=== PATIENT | female | born 1970 | race Caucasian/White ===

== ENCOUNTER 2025-03-30 09:17 | Emergency (ER) | payer BC, SELFPAY ==
--- NOTE | 2025-03-30 09:22 | ED_ITS ---
HPI - Ear Problem General Chief complaint: Ear Stated complaint: rt ear pain Time Seen by Provider: 03/30/25 09:40 Source: patient and RN notes reviewed Mode of arrival: ambulatory Limitations: no limitations History of Present Illness HPI Narrative: 54-year-old female presents with concern for a pounding noise in her right ear and pain behind her ear on her scalp. She denies any injury or trauma. She denies drainage from the ear. She denies runny nose, stuffy nose. She reports she feels like her ear is draining. She denies any redness, warmth, open skin, rash. She denies any exacerbating factors. Reports some positions such as lying down might relieve the symptoms. MD Complaint: ear pain Related Data Home Medications ?Medication ?Instructions ?Recorded ?Confirmed ?Last Taken ?Type insulin human U-100 NPH-regulr 1 sliding scale dose subcut 03/30/25 03/30/25 Unknown History 70-30 mix 100 unit/mL subcutaneous USEASDIRECTD susp (Novolin 70/30 U-100 Insulin) Allergies Allergy/AdvReac Type Severity Reaction Status Date / Time Penicillins Allergy Mild Hives Verified 03/30/25 09:23 Review of Systems Review of Systems: CONSTITUTIONAL: Denies malaise, chills, sweats, or fever. EYES: Denies visual changes, redness, or discharge. ENT: Denies rhinorrhea, congestion, sinus pain, and sore throat. Reports pounding in the right ear, denies pain CARDIOVASCULAR: Denies chest pain, palpitations, or edema. RESPIRATORY: Denies cough. Denies dyspnea. GASTROINTESTINAL: Denies abdominal pain, nausea, vomiting, diarrhea SKIN: Denies rash or itching. MUSCULOSKELETAL: Denies myalgia. Reports scalp pain behind the right ear NEUROLOGIC: Denies headache. All systems reviewed & are unremarkable except as noted in HPI and below [facility] Family History Family History (Updated 09/20/16 @ 17:17 by DOCTOR UNKNOWN) Sibling Patient's sister is in good health Family history of diabetes mellitus in first degree relative Grandparent Family history of alcoholism Family history of lung cancer Diabetes mellitus Mother Patient's mother is , Onset Age: 55 Father Patient's father is Other Family history of cardiovascular disease Social History Social History Smoking status: Never smoker Alcohol intake: never Comments At time of signature, agree with nursing past medical, surgical, social and family history. There is no relevant family history pertinent to the presenting complaint Exam Narrative: GENERAL: Well-appearing, well-nourished, and in no acute distress. HEAD: Normocephalic EYES: PERRLA, conjunctivae clear ENT: Nares clear. Mucous membranes moist. TM pearly yang with sharp light reflex bilaterally; no tragal tenderness, EAC unremarkable. No post or pre-auricular erythema, induration, or warmth noted. Oropharynx not erythematous without lesions. Tonsils not enlarged and without exudate, no drooling, no hoarseness, no trismus, uvula midline. NECK: Supple. No lymphadenopathy CHEST: Clear to auscultation, breath sounds equal. No wheezing, rhonchi, rales, or stridor. No respiratory distress, speaks in full sentences. HEART: Regular rate and rhythm. No murmur heard. SKIN: Warm, dry, no rash. No erythema, induration, masses, fluctuant areas behind the right ear. Mild tenderness to palpation. NEURO: Alert and oriented x3. PSYCH: Normal mood and affect Course Course Emergency Course: Patient is aware of diagnosis, understands and agrees to treatment plan. Anticipatory guidance given. Patient agrees to follow-up as directed and is aware of reasons to seek care at the emergency department. Portions of this record may have been created with voice recognition software Level of Care: [facility] Visit Vital Signs Vital signs: Reviewed. Medical Decision Making MDM Narrative Medical decision making narrative: I evaluated this in the [facility]. History is obtained from patient who is an independent historian and physical exam was performed.? Available medical records were reviewed. ? Exam findings and relevant testing show no acute concerns or changes; patient is non-toxic appearing and is in no distress. Differential diagnosis considered: Moore virus, strep pharyngitis, allergic rhinitis, upper respiratory tract infection, sinusitis, rhinosinusitis, nasopharyngitis. viral pharyngitis, otitis media, otitis externa, otitis effusion, pre/post auricular cellulitis, mastoiditis, cerumen impaction, foreign body. Exam findings show no acute concerns or changes; patient is non-toxic appearing and is in no distress. Patient is appropriate for outpatient treatment and follow-up. ? Differential diagnosis and treatment plan were discussed with the patient. Patient agrees with discussion and after shared medical decision making agrees with plan of care. All questions were answered to the patient's satisfaction. Patient is appropriate for outpatient treatment and follow-up. Critical Care Time Critical Care Time Critical Care Time: No Discharge Plan Discharge Clinical Impression: Earache on right, Scalp pain Patient Disposition: Home Condition: Stable Instructions: Earache (ED) Additional Instructions: 1) Please follow-up with your primary care doctor for further evaluation. 2) If you have any worsening of symptoms or any other urgent concerns please go to the ER. 3) Please take medications as prescribed and continue taking your home medications as usual. 4) Please read and follow information included in discharge instructions. Patient Language: Hebrew Prescriptions: New ibuprofen 800 mg tablet 800 mg PO Q6H PRN (Reason: pain) Qty: 30 0RF oxymetazoline [Afrin (oxymetazoline)] 0.05 % spray,non-aerosol 2 spray intranasal Q12H PRN (Reason: nasal congestion) 3 Days Qty: 15 0RF tizanidine 2 mg capsule 2 mg PO TID PRN (Reason: muscle spasticity) Qty: 14 0RF No Action Novolin 70/30 U-100 Insulin 100 unit/mL (70-30) suspension 1 sliding scale dose subcut USEASDIRECTD Follow-up/Referrals: Jennifer Lugo DO [Physician] - PHYSICIAN,MASTER MACHINIST [Primary Care Provider] - Time of Disposition: 09:46
[2025-03-30 09:24] VITALS: BP 148/74; PULSE 80; RESP 16; TEMP 36.2; O2SAT 100
--- OUTSIDE RECORDS SUMMARY | 2025-03-30 09:37 | XMS_ITS | Clinical Summary ---
Author Organization [facility] Address [facility] [place] [address] Care Team Providers Care Station Installer And Repairer Name Role Phone Pcp, No Primary Care Provider Unavailabl e Allergies Active Allergy Reactions Criticality Noted Date Comments Penicillins Hives Medium Medications blood-glucose meter (FREESTYLE LITE METER) kit use as directed 0 0 0 Active ferrous sulfate (SLOW FE) 142 mg (45 mg iron) tablet extended release take as directed 0 0 0 Active lancets (freestyle) 28 gauge misc check blood sugars twice a day 100 each 6 0 Active blood glucose diagnostic (FREESTYLE LITE STRIPS) strip check blood sugars twice a day 100 6 0 Active pen needle, diabetic (UNIFINE PENTIPS PLUS) 31 gauge x 5/16 needle Uses BID 180 3 2 Active aspirin 81 mg tablet take 1 tablet by oral route every day 0 0 6 Active insulin asp prt-insulin aspart (NovoLOG Mix 70-30 FlexPen) 100 unit/mL (70-30) insulin pen inject 20 units before breakfast and supper by subcutaneous route 2 3 2 Active simvastatin (ZOCOR) 20 mg tablet Take 1 tablet (20 mg total) by mouth nightly. 30 tablet 3 7 Active metoprolol (LOPRESSOR) 25 mg tablet Take 1 tablet (25 mg total) by mouth 2 (two) times a day. 60 tablet 3 7 Active Active Problems Problem Noted Date Diagnosed Date Body mass index (bmi) 39.0-39.9, adult 11/14/201 7 History of non-ST elevation myocardial infarctio n (NSTEMI) 07/17/2017 Obstructive sleep apnea syndrome 10/31/2016 Overview (12/07/2016): SCARLET (obstructive sleep apnea) Dyspnea on exertion 10/31/2016 Overview (12/07/2016): STARK (dyspnea on exertion) Chronic fatigue syndrome 07/24/2016 Overview (12/07/2016): Chronic fatigue Snoring 07/24/2016 Overview (12/07/2016): Snoring Non-Q wave myocardial infarction 07/24/2016 Overview (12/07/2016): Non-ST elevation myocardial infarction (NSTEMI), type 2 Benign hypertension 07/24/2016 Overview (12/07/2016): HTN (hypertension), benign Body mass index 40+ - severely obese 07/24/2016 Overview (12/07/2016): Morbid obesity with BMI of 40.0-44.9, adult Chest pain on exertion 07/24/2016 Overview (12/07/2016): Chest pain on exertion Type 2 diabetes mellitus 12/09/2013 Overview (12/08/2016): DMII WO CMP UNCNTRLD Hypertension 07/08/2012 Overview (12/07/2016): Hypertension, Unspecified Hyperlipidemia 07/08/2012 Overview (12/08/2016): HYPERLIPIDEMIA NEC/NOS Surgical History Surgery Date Site/Laterality Comments HYSTERECTOMY Hysterectomy CARPAL TUNNEL RELEASE 2008 Carpal tunnel release TOTAL ABDOMINAL HYSTERECTOMY W/ BILATERAL SALPINGOOPHORECTOMY Hysterectomy, total abdominal, BSO Medical History Medical History Date Comments Type 2 diabetes mellitus (HCC) D iabetes type 2 Hx Other Medical Not Claustropho bic; Comments: GFC 04/14/2014 - Hx Other Medical History of endo metriosis Family History Medical History Relation Name Comments Other Father 2 Complications f rom surgery; Cause of : Complications from surgery Heart attack Mother 2 Myocardial infa rction; Cause of : Myocardial infarction Diabetes type II Other Family hist ory of Diabetes -Type 2; Mitral valve prolapse Sister Mitral valve prolapse; Relation Name Status Comments Father 1 Father 2 Mother 1 (Age 55) Mother 2 Other Sister Social History Tobacco Use Types Packs/Day Years Used Date Smoking Tobacco: Never Smokeless Tobacco: Never Alcohol Use Standard Drinks/Week Comments No 0 (1 standard drink = 0.6 oz pur e alcohol) Comments Unknown Sex and Gender Information Value Date Recorded Sex Assigned at Not on file Legal Sex Female 1:21 AM SCHOOL BUS OPERATOR Gender Identity Not on file Sexual Orientation Not on file Obstetrics History Last Filed Vital Signs Vital Sign Reading Time Taken Comments Blood Pressure 140/86 07/17/2017 3:56 PM SCHOOL BUS OPERATOR Pulse 83 07/17/2017 3:56 PM SCHOOL BUS OPERATOR Temperature - - Respiratory Rate - - Oxygen Saturation 99% 07/17/2017 3:56 PM SCHOOL BUS OPERATOR Inhaled Oxygen Concentration - - Weight 99.3 kg (219 lb) 07/17/2017 3:56 PM SCHOOL BUS OPERATOR Height 158.8 cm (5' 2.5) 07/17/2017 3:56 PM SCHOOL BUS OPERATOR Body Mass Index 39.42 07/17/2017 3:56 PM SCHOOL BUS OPERATOR Plan of Treatment Not on file Insurance [employer] [place] Care Teams Station Installer And Repairer Relationship Specialty Start Date End Date NO PCP PCP - General 01/30/17
--- OUTSIDE RECORDS SUMMARY | 2025-03-30 09:37 | XMS_ITS | Continuity of Care Document ---
Author Organization [facility] Address [address] [place] [address] Phone Care Team Providers Care Market Development Director Name Role Phone Sincere Ro MD Unavailable Unavailable Allergies, Adverse Reactions, Alerts Substance Reaction Status Criticality Penicillins Active No Information Medications Medication Instructions Dosage Effective Dates (start - stop) Status Comments INSUL-CAP (unknown strength) Not Available - Active Procedures Procedure Date Medical Testimony Deposition Independent Medical Examination SHANNON Advance Directives Directive Yes / No Effective Date File Name No Information Encounters Encounter Description Practice Location Reason(s) For Visit Diagnoses Date Provider Providers Copied on Encounter [facility], [address], [id number], tel:[phone] [facility] No Information [address] [facility], [facility] [address], [place], [place], [id number] , [place]. tel: [phone] Independent Medical Examination SHANNON [facility], [address] [facility] [address], [place], [id number], [place] tel:[phone] [facility] Carpal Tunnel Syndrome [address] [facility], [facility] [address], [place], [place], [id number] , [place]. tel: [phone] Family History Family Member Type Diagnosis Age At Onset Problem (finding) Family history of diabetes mellitus type 2 Payers Payer name Insurance type Covered constitution party ID Authoriza tion(s) No Information Social History Type Description Quantity Date Captured Comments Sex Female Smoking Status No Information Chief Complaint And Reason For Visit No Information Reason For Referral Reason For Referral No Information Plan Of Treatment Date Type Action Status Patient Education Body Mass Index: After Your Visit completed History Of Present Illness Encounter Date Complaint History Of Prese nt Illness No Information Functional Status Date Functional Assessmen t No Information Instructions Date Instruction Additional Infor mation No Information Assessments Type Assessment Date No Information Patient Care Teams Name Effective Dates (start - stop) Status Members No Information
--- OUTSIDE RECORDS SUMMARY | 2025-03-30 09:37 | XMS_ITS | Referral Summary ---
Author Organization [facility] Address [facility] [place] [address] Care Team Providers Care Multi Punch Operator Name Role Phone Pcp, No Primary Care [...] Unspecified Hyperlipidemia 07/08/2012 Overview (12/08/2016): HYPERLIPIDEMIA NEC/NOS Social History Tobacco Use Types Packs/Day Years Used Date Smoking Tobacco: Never Smokeless Tobacco: Never Alcohol Use Standard Drinks/Week Comments No 0 (1 standard drink = 0.6 oz pur e alcohol) Comments Unknown Sex and Gender Information Value Date Recorded Sex Assigned at Not on file Legal Sex Female 1:21 AM MEDICAL BILLING ASSISTANT Gender Identity Not on file Sexual Orientation Not on file Last Filed Vital Signs Vital Sign Reading Time Taken Comments Blood Pressure 140/86 07/17/2017 3:56 PM MEDICAL BILLING ASSISTANT Pulse 83 07/17/2017 3:56 PM MEDICAL BILLING ASSISTANT Temperature - - Respiratory Rate - - Oxygen Saturation 99% 07/17/2017 3:56 PM MEDICAL BILLING ASSISTANT Inhaled Oxygen Concentration - - Weight 99.3 kg (219 lb) 07/17/2017 3:56 PM MEDICAL BILLING ASSISTANT Height 158.8 cm (5' 2.5) 07/17/2017 3:56 PM MEDICAL BILLING ASSISTANT Body Mass Index 39.42 07/17/2017 3:56 PM MEDICAL BILLING ASSISTANT Plan of Treatment Not on file Insurance [employer] Care Teams Multi Punch Operator Relationship Specialty Start Date End Date NO PCP PCP - General 01/30/17
--- OUTSIDE RECORDS SUMMARY | 2025-03-30 09:37 | XMS_ITS | Clinical Summary ---
Author Organization [facility] Address [address] [place] [address] Care Team Providers Care Forest Resource Specialist Name Role Phone Unavailable Primary Care Provider Unavailabl e Social History Tobacco Use Types Packs/Day Years Used Date Smoking Tobacco: Never Assessed Comments Unknown Sex and Gender Information Value Date Recorded Sex Assigned at Not on file Legal Sex Female 8:33 PM CDT Gender Identity Not on file Sexual Orientation Not on file Plan of Treatment Health Maintenance Due Date Last Done Comments Cervical Cancer Screening Pa p Smear (Age 30 to 64) Every 3 Years 1972 Colorectal Cancer Screening Colonoscopy (10 Years) 1972 Annual Physical 1975 Hepatitis C 1990 DTaP, Tdap and Td Vaccines ( 1 - Tdap) 1991 Hepatitis B Vaccines (1 of 3 - 19+ 3-dose series) 1991 Cervical Cancer Screening Pa p with HPV Testing (Age 30 to 64) Every 5 Years 2002 Cervical Cancer Screening with HPV 2002 Mammogram Screening 2012 Pneumococcal Vaccine: 50+ Ye ars (1 of 1 - PCV) 2022 Zoster Vaccines (1 of 2) 2022 COVID-19 Vaccine ( - 2023-2 5 season) 2024 Meningococcal B Vaccine Aged Out No l onger eligible based on patient's age to complete this topic Meningococcal Vaccine Aged Out No kellie larisa eligible based on patient's age to complete this topic RSV Immunizations Under 20 Months Aged Out No longer eligible based on patient's age to complete this topic
--- OUTSIDE RECORDS SUMMARY | 2025-03-30 09:41 | XMS_ITS | Continuity of Care Document ---
Author Organization [facility] Address [address] [place] [address] Phone Care Team Providers Care Road Boss Name Role Phone Sincere Ro MD Unavailable [...] Date Provider Providers Copied on Encounter [facility], [address], [id number], tel:[phone] [facility] No Information [address] [facility], [facility] [address], [place], [place], [id number] , [place]. tel: [phone] Independent Medical Examination SHANNON [facility], [address] [facility] [address], [place], [id number], [place] tel:[phone] [facility] Carpal Tunnel Syndrome [address] [facility], [facility] [address], [place], [place], [id number] , [place]. tel: [phone] Family History Family Member Type Diagnosis Age At Onset Problem (finding) Family history of diabetes mellitus type 2 Payers Payer name Insurance type Covered green party ID Authoriza tion(s) No Information Social [...]
== END 2025-03-30 09:53 | disposition home or self-care (01) ==
PROVIDERS: Emergency Provider Nurse Practitioner; Referring Provider Family Medicine
DX: H92.01 Otalgia, right ear (principal); R51.9 Headache, unspecified
CPT/HCPCS: 99213; G0463